=== PATIENT | female | born 1960 | race Caucasian/White ===

== ENCOUNTER 2025-06-08 16:31 | Emergency (ER) | payer MEDICARE, SELFPAY ==
[2025-06-08 16:32] VITALS: BP 170/76; PULSE 94; RESP 15; TEMP 36.6; O2SAT 99; BMI 28.1
[2025-06-08 17:32] VITALS: BP 144/69; PULSE 82; RESP 16; O2SAT 99
--- NOTE | 2025-06-08 17:46 | EKG12_ITS ---
Test Reason : CP Blood Pressure : */* mmHG Vent. Rate : 91 BPM Atrial Rate : 91 BPM P-R Int : 152 ms QRS Dur : 94 ms QT Int : 368 ms P-R-T Axes : 63 42 12 degrees QTcB Int : 452 ms Normal sinus rhythm Normal ECG Confirmed by KRYSTIN KINNEY, DAVID ([id number]), [employer] JOSE HEREDIA ([id number]) on 06/11/2025 9:11:17 AM Referred By: DAGO Confirmed By: DAVID MCCLELLAND MD
--- NOTE | 2025-06-08 17:47 | EDS_ITS ---
HPI History of Present Illness Chief Complaint: Chest Other Narrative Narrative: 64-year-old female who denies significant past medical history except for asthma that is well-controlled presents with chest pain that she has had intermittently for the last week. She describes it more as indigestion type feeling. Became worse today, and it radiated down her left arm. It was mainly in her left chest as well. She denies any nausea or vomiting. No diaphoresis or shortness of breath, no fevers or chills, no cough, no exacerbating or alleviating factors. She states she saw her chiropractor today who also thought it was indigestion. She made an appointment with her primary care provider for 3 days from now, but at the urging of her sister, presents to the emergency department for evaluation. She denies any leg swelling, no DVT or PE risk factors. PFSH PFSH Medical History no medical history Allergy/AdvReac Type Severity Reaction Status Date / Time Penicillins (PCN) Allergy Severe Hives Verified 06/08/25 16:36 Family History no significant family his Surgical History no surgical history Social History Smoking Status: Never smoker ROS ROS ED ROS Narrative Review of systems positive for indigestion type chest pain and pressure. More left-sided, worse today, no fever or chills, no cough, no nausea vomiting or diaphoresis, no shortness of breath. Radiated to left shoulder and arm today as well. No leg swelling. No exertional component. EXAM Physical Exam Narrative Exam Narrative: Afebrile. Vital signs noted. Nontoxic-appearing. Cardiovascular examination reveals a regular rate and rhythm. Lungs are clear to auscultation bilaterally. Abdomen is soft and nontender with positive bowel sounds, no guarding or rebound. Neurological examination is nonfocal, nonlateralizing. Sitting on the cot with her legs crossed. No pedal edema noted. Const Vital Signs: 06/08/25 16:32 06/08/25 17:30 06/08/25 17:32 Temperature 97.9 F Temperature Source Temporal Pulse Rate 94 82 Respiratory Rate 15 16 Respiratory Effort Normal Non-Labored Blood Pressure 170/76 H 144/69 H Blood Pressure Mean 107 94 Pulse Ox 99 99 Oxygen Delivery Method Room Air Room Air 06/08/25 17:53 06/08/25 18:00 06/08/25 19:00 Temperature Temperature Source Pulse Rate 87 77 Respiratory Rate Respiratory Effort Blood Pressure 152/58 H 133/59 H Blood Pressure Mean 89 83 Pulse Ox 100 96 Oxygen Delivery Method Room Air Room Air Room Air 06/08/25 20:00 06/08/25 20:07 Temperature 97.9 F Temperature Source Pulse Rate 86 86 Respiratory Rate 16 16 Respiratory Effort Blood Pressure 131/70 H 131/70 H Blood Pressure Mean 90 90 Pulse Ox 96 96 Oxygen Delivery Method Room Air MDM MDM MDM Narrative Medical decision making narrative: Differential diagnosis includes but not limited to ACS versus hiatal hernia versus GERD versus nonspecific chest pain. I have low suspicion for pneumothorax or pneumonia because the history and physical does not support this. I do not think that she has an aortic dissection as she has equal radial pulses on examination, and now in a more appropriate blood pressure. She does not have any tearing back pain or radiation to the back. Chest pain workup was pursued. EKG was obtained and interpreted by myself independently as normal sinus rhythm at 91 bpm without ectopy or acute ST changes. No STEMI. Chest x-ray in 1 view interpreted by myself independently shows no evidence of an acute process, no pneumonia, no pneumothorax. I reviewed the radiology report which confirms my independent interpretation. I reviewed her laboratory work she has normal white count of 4.7 with hemoglobin normal at 13.2, hematocrit 37.8, platelet count normal at 248. BMP is grossly unremarkable with normal sodium potassium and chloride. Glucose 90. BUN normal at 7 and creatinine 0.94. Initial high-sensitivity troponin 7. Repeat examination at approximately 1850 shows her resting comfortably playing BTR on her phone. She states she feels improved and her blood pressure is now 138 systolic. I offered her a GI cocktail for her indigestion type symptoms but she declines and states that she is improving significantly. As well as her delta troponin is acceptable, I do feel that she could be discharged to follow-up with her primary care provider on Wednesday. Return instructions to the emergency department were reviewed. Her repeat HST came back and is also 7 for an acceptable delta troponin. She feels improved. She states that remotely she had history of hiatal hernia which may be the cause of her indigestion type symptoms. She was told to start [id number] omeprazole and follow-up with her primary care provider on Wednesday, 3 days from now as scheduled. Return instructions to the emergency department were reviewed. Patient agreeable to the plan. Disposition is discharged home in stable condition. History & Record Review Discussion w/independent historian: Patient Additional record(s) reviewed:: No prior records (No prior ED visit) Lab Data Attestation: I reviewed the patient's lab results. Labs: Laboratory Results - last 24 hr 06/08/25 06/08/25 17:38 19:29 WBC 4.7 RBC 4.17 L Hgb 13.2 Hct 37.8 MCV 90.6 MCH 31.7 MCHC 34.9 RDW Std Deviation 41.1 RDW Coeff of Pepe 12.5 Plt Count 248 MPV 9.8 Immature Gran % (Auto) 0.000 Neut % (Auto) 48.0 Lymph % (Auto) 35.8 [place] % (Auto) 10.1 H Eos % (Auto) 5.2 H Baso % (Auto) 0.9 Absolute Neuts (auto) 2.2 Absolute Lymphs (auto) 1.67 Nucleated RBC % 0 Sodium 141 Potassium 3.9 Chloride 106 Carbon Dioxide 24.3 Anion Gap 11 BUN 7 Creatinine 0.94 Estim Creat Clear Calc 49.65 L Est GFR (MDRD) Non-Af 67 BUN/Creatinine Ratio 7.5 L Glucose 90 Calcium 9.3 Troponin T High Sens 7 Troponin T Hi Sens 2 Hr 7 Radiography Diagnostic Testing: Clinical Impression(s) from Imaging Studies Chest X-Ray 06/08/25 17:50 IMPRESSION: No acute cardiopulmonary process. [facility] T[facility] Chief Complaint: Chest Other ED Provider: Joe Velazco Dx/Rx/DC Orders Clinical Impression: Chest pain, Indigestion Instructions: ED Chest Pain, Uncertain Cause Primary Care Provider: Chanel Owens NP Referrals: Chanel Owens [employer]CH CUST[employer]ER SERVICE REPRESENTATIVE, [employer] CUST[employer]ER SERVICE REPRESENTATIVE-C [Primary Care Provider] - 3-5 Days Activity Restrictions/Additional Instructions: Return to the emergency department with increased pain, new or worsening symptoms. Follow-up with your primary care provider on Wednesday as scheduled. You may want to start [id number] omeprazole as needed. Print Language: Serbian Disposition Disposition: Home, Self Care
--- NOTE | 2025-06-08 17:50 | RAD_ITS ---
EXAM: XR Chest, 1 View CLINICAL INDICATION: CHEST PAIN TECHNIQUE: Frontal view of the chest. COMPARISON: No relevant prior studies available. FINDINGS: LUNGS AND PLEURAL SPACES: Unremarkable. No consolidation. No pneumothorax. HEART: Unremarkable. No cardiomegaly. MEDIASTINUM: Unremarkable. Normal mediastinal contour. BONES/JOINTS: Unremarkable. No acute fracture. RAD/Chest 1 View (Portable) IMPRESSION: No acute cardiopulmonary process. Reading Location: [id number]
[2025-06-08 17:57] LABS: Hematocrit 37.8 % (37-47); Hemoglobin 13.2 g/dL (12.0-15.0); Immature Granulocytes Count 0.000 X10^3/uL (0.0-0.0); Mean Corp Hgb Conc 34.9 g/dL (32-36); Mean Corpuscular Volume 90.6 fL (81-99); Mean Platelet Vol. 9.8 fl (6.2-12.0); NRBC Flagged by Analyzer 0 % (0-5); Platelet Count 248 K/mm3 (150-450); RBC Distribution Width CV 12.5 % (11.6-14.6); RBC Distribution Width SD 41.1 fl (35.1-43.9); Red Blood Count 4.17 M/mm3 (4.2-5.4); White Blood Count 4.7 K/mm3 (4.4-11.0)
[2025-06-08 18:00] VITALS: BP 152/58; PULSE 87; O2SAT 100
[2025-06-08 18:23] LABS: Anion Gap 11 (5-15); BUN 7 mg/dL (4-19); BUN/Creat Ratio 7.5 RATIO (10-20); Calcium,Total 9.3 mg/dL (7.6-11.0); Carbon Dioxide 24.3 mmol/L (21.0-32.0); Chloride 106 mmol/L (98-108); Estimated Creatinine Clearance 49.65 ml/min (50-250); Glucose 90 mg/dL (70-99); Potassium 3.9 mmol/L (3.3-5.1); Troponin T High Sensitivity 7 ng/L (<=14)
[2025-06-08 19:00] VITALS: BP 133/59; PULSE 77; O2SAT 96
[2025-06-08 20:00] VITALS: BP 131/70; PULSE 86; RESP 16; O2SAT 96
[2025-06-08 20:00] LABS: Troponin T High Sens 2 HR 7 ng/L (<=14)
[2025-06-08 20:07] VITALS: BP 131/70; PULSE 86; RESP 16; TEMP 36.6; O2SAT 96
== END 2025-06-08 20:31 | disposition home or self-care (01) ==
PROVIDERS: Emergency Provider Emergency Medicine; PCP Nurse Practitioner Family; Visit Provider Emergency Medicine
DX: R07.89 Other chest pain (principal); K30 Functional dyspepsia
CPT/HCPCS: 71045; 80048; 84484; 85025; 93005; 99284; A4216